=== PATIENT | female | born 1995 | race Caucasian/White ===

== ENCOUNTER 2018-01-09 17:39 | Emergency (ER) | payer BC ==
[2018-01-09 19:56] VITALS: BP 142/85
--- NOTE | 2018-01-09 20:20 | UC ---
Respiratory Complaint HPI - HPI Summary HPI Summary: 23 yo female with nasal congestion/runny nose and myalgias room mate diagnosed with flu today - History of Current Complaint Chief Complaint: UCRespiratory Stated Complaint: SINUS CONGESTION HEADACHE Time Seen by Provider: 01/09/18 20:10 Hx Obtained From: Patient Hx Last Menstrual Period: 01/04/18 Onset/Duration: Sudden Onset, Lasting Hours Timing: Constant Severity Initially: Mild Severity Currently: Moderate Pain Intensity: 3 Pain Scale Used: 0-10 Numeric Character: Cough: Nonproductive Aggravating Factors: Nothing Associated Signs And Symptoms: Positive: Chills, Nasal Congestion, Hoarseness - Allergies/Home Medications Allergies/Adverse Reactions: Allergies Allergy/AdvReac Type Severity Reaction Status Date / Time No Known Allergies Allergy Verified 01/09/18 19:56 PMH/Surg Hx/FS Hx/Imm Hx Previously Healthy: Yes - admitted for cellulitis once - Surgical History Surgical History: None - Family History Known Family History: Positive: Hypertension - Social History Alcohol Use: Occasionally Substance Use Type: None Smoking Status (MU): Never Smoked Tobacco - Immunization History Most Recent Influenza Vaccination: NOT IN Review of Systems Constitutional: Chills, Fatigue Skin: Negative Eyes: Negative ENT: Nasal Discharge, Sinus Congestion Respiratory: Cough Cardiovascular: Negative Gastrointestinal: Negative Genitourinary: Negative Motor: Negative Neurovascular: Negative Musculoskeletal: Negative Neurological: Negative Psychological: Negative Is Patient Immunocompromised?: No All Other Systems Reviewed And Are Negative: Yes Physical Exam Triage Information Reviewed: Yes Appearance: Well-Appearing, No Pain Distress Vital Signs: Initial Vital Signs Temp 98.7 F 01/09/18 19:47 Pulse 98 01/09/18 19:47 Resp 16 01/09/18 19:47 BP 142/85 01/09/18 19:47 Pulse Ox 100 01/09/18 19:47 Vital Signs Reviewed: Yes Eyes: Positive: Conjunctiva Clear ENT: Positive: Hearing grossly normal, Pharynx normal, Nasal congestion, Nasal drainage, TMs normal, Uvula midline. Negative: Pharyngeal erythema, Tonsillar swelling, Muffled voice, Hoarse voice, Dental tenderness, Sinus tenderness Neck: Positive: Supple, Nontender, No Lymphadenopathy Respiratory: Positive: Lungs clear, Normal breath sounds, No respiratory distress, No accessory muscle use Cardiovascular: Positive: RRR, No Murmur Musculoskeletal: Positive: ROM Intact, No Edema Neurological: Positive: Alert, Muscle Tone Normal Skin Exam: Normal UC Diagnostic Evaluation - Laboratory O2 Sat by Pulse Oximetry: 100 - normal/not hypoxic Respiratory Course/Dx - Differential Dx/Diagnosis Provider Diagnoses: influenza or influenza like illness Discharge - Discharge Plan Condition: Stable Disposition: HOME Prescriptions: Oseltamivir CAP* [Tamiflu CAP*] 75 mg PO BID #10 cap Patient Education Materials: Influenza (ED) Referrals: Non Staff,Doctor [Primary Care Provider] - Additional Instructions: recheck in 4-5 days if not better rest fluids tylenol or advil if needed
== END 2018-01-09 20:19 | disposition home or self-care (01) ==
LOC: UCCORT 17:39
DX: J11.1 Influenza due to unidentified influenza virus with other respiratory manifestations (principal)
CPT/HCPCS: 99212; G0463

== ENCOUNTER 2018-01-18 15:23 | Emergency (ER) | payer BC ==
[2018-01-18 19:48] VITALS: BP 128/69
[2018-01-18] MEDS ORDERED: Ciprofloxacin 0.3% OPTH.SOL* 2.5 ML BTL BOTH EYES ONE (20:02)
--- NOTE | 2018-01-18 20:04 | UC ---
Eye Complaint HPI - HPI Summary HPI Summary: 23 y/o male presents to the urgent care c/o B/L eye redness w/ yellowish eye discharge since last night. Pt reports she fell asleep w/ her contact lst night and she woke up w/ crusting yellowish eye discharge. Pt denies fever, photophobia, visual disturbance, ALVARES, SON, abdominal pain, N/V/D - History of Current Complaint Chief Complaint: UCEye Stated Complaint: BILATERAL EYE COMPLAINT Time Seen by Provider: 01/18/18 19:55 Hx Obtained From: Patient Hx Last Menstrual Period: 01/04/18 Onset/Duration: Gradual Onset, Lasting Days - 1 day, Still Present, Worse Since - this morning Timing: Constant Severity Initially: Mild Severity Currently: Mild Pain Intensity: 0 Pain Scale Used: 0-10 Numeric Location of Injury: Conjunctiva - B/L Character: Dull, Foreign Body Sensation Aggravating Factor(s): Contact Lens Alleviating Factor(s): Nothing Associated Signs And Symptoms: Positive: Drainage (Purulent). Negative: Photophobia, Vision Impairment Bilateral, Vision Impairment Right, Vision Impairment Left, Fever, Swelling - Risk Factors Penetrating Injury Risk Factor: Negative Acute Glaucoma Risk Factors: Negative Optic Artery Occlusion Risk Factors: Negative - Allergies/Home Medications Allergies/Adverse Reactions: Allergies Allergy/AdvReac Type Severity Reaction Status Date / Time No Known Allergies Allergy Verified 01/18/18 19:47 PMH/Surg Hx/FS Hx/Imm Hx Previously Healthy: Yes - Pt denies PMHX - Surgical History Surgical History: None - Family History Known Family History: Positive: Hypertension - Social History Occupation: Student Lives: With Family Alcohol Use: Occasionally Substance Use Type: None Smoking Status (MU): Never Smoked Tobacco - Immunization History Most Recent Influenza Vaccination: NOT IN Review of Systems Constitutional: Negative Skin: Negative Eyes: Eye Redness - B/L eye w/ yellowish eye discharge ENT: Nasal Discharge - yellowish discharge Respiratory: Negative Cardiovascular: Negative Gastrointestinal: Negative Genitourinary: Negative Motor: Negative Neurovascular: Negative Musculoskeletal: Negative Neurological: Negative Psychological: Negative Is Patient Immunocompromised?: No All Other Systems Reviewed And Are Negative: Yes Physical Exam Triage Information Reviewed: Yes Vital Signs: Initial Vital Signs Temp 97.9 F 01/18/18 19:43 Pulse 87 01/18/18 19:43 Resp 15 01/18/18 19:43 BP 128/69 01/18/18 19:43 Pulse Ox 100 01/18/18 19:43 - Additional Comments Vital Signs Reviewed: Yes General: Well appearing, well nourished adolescent female in no apparent pain distress Eyes: Positive: B/L Conjunctiva Inflamed - Visual acuity: WNL,Visual daily: full to confrontation. PERRLA, EOMI intact w/out limitation or complaint of pain. eyelashes w/ yellowish crusting . mild tearing and yellowish drainage observed. No ciliary flush. No chemosis, No photophobia. Normal fundoscopic exam ; no proptosis, exophthalmos, nystagmus. ENT: Positive: Normal ENT inspection, Hearing grossly normal, Pharynx normal, Nasal congestion, Nasal drainage - clear, TMs normal - B/L external ear canal clear , TM's WNL. Negative: Tonsillar swelling, Tonsillar exudate Neck: Positive: Supple, Nontender, No Lymphadenopathy Respiratory: Positive: Chest nontender, Lungs clear, Normal breath sounds, No respiratory distress Cardiovascular: Positive: RRR, No Murmur, Pulses Normal, Brisk Capillary Refill Abdomen Description: Positive: Nontender, No Organomegaly, Soft. Negative: CVA Tenderness (R), CVA Tenderness (L) Bowel Sounds: Positive: Present Musculoskeletal: Positive: Strength Intact, ROM Intact, No Edema Neurological Exam: Normal Psychological Exam: Normal Skin Exam: Normal Eye Complaint Course/Dx - Course Course Of Treatment: 23 y/o male presents to the urgent care c/o B/L eye redness w/ yellowish eye discharge since last night. Pt reports she fell asleep w/ her contact lst night and she woke up w/ crusting yellowish eye discharge. Pt denies fever, photophobia, visual disturbance, ALVARES, SON, abdominal pain, N/V/ D. Hx obtained. Pt w/ B/L bacterial conjunctivitis on examination. Pt Rx ciprofloxacin ophthalmic drops at the clinic for his bacterial conjunctivitis. Pt instructed how to apply medication and if symptoms do not improve, advised to f/u with PCP or Opthalmologist for further evaluation and treatment. Pt understood and agreed w/ plan of care. - Differential Dx/Diagnosis Differential Diagnosis/HQI/PQRI: Conjunctivitis, Corneal Abrasion, Keratitis, Periorbital Cellulitis, Orbital Cellulitis, Uveitis Provider Diagnoses: 1- B/L bacterial conjunctivitis Discharge - Discharge Plan Condition: Stable Disposition: HOME Patient Education Materials: Conjunctivitis (ED) Referrals: [facility] [Outside] - If Needed Additional Instructions: 1-Please apply ophthalmic drops as instructed and finish the full course of treatment to avoid recurrent infection. Encourage hand washing and avoid to avoid spread. Do not wear contact lenses while on treatment. 2-If you do not improve or if symptoms worsen please f/u with support services specialist for further evaluation and treatment
== END 2018-01-18 20:27 | disposition home or self-care (01) ==
LOC: UCCORT 15:23
DX: H10.89 Other conjunctivitis (principal); A49.9 Bacterial infection, unspecified
CPT/HCPCS: 99212; A9270-GY; G0463